=== PATIENT | male | born 1960 | race Asian ===

== ENCOUNTER 2022-09-16 20:46 | Observation (INO) | payer OTHER ==
[2022-09-16 21:02] VITALS: BMI 27.2
[2022-09-17 00:38] LABS: BASO % 0.9 % (0-2.0); EOS % 1.8 % (0-4.5); HEMATOCRIT 38.7 % (35.4-49); HEMOGLOBIN 13.6 GM/dL (11.7-16.9); LYMPH % 12.1 % (8-40); MCH 30.4 pg (25.7-33.7); MCHC 35.2 g/dl (32.0-35.9); MEAN CELL VOLUME 86.3 fl (80-96); MEAN PLT VOLUME 9.3 fl (7.5-11.1); MONO % 5.9 % (3.8-10.2); NEUT % 79.3 % (42.8-82.8); PLATELET COUNT 206 10^3/uL (134-434); RBC 4.49 M/mm3 (4.00-5.60); RDW 14.2 % (11.9-15.9); WHITE BLOOD COUNT 10.3 K/mm3 (4.0-10.0)
[2022-09-17 00:47] LABS: INR 1.09 (0.83-1.09); PROTHROMBIN TIME (PATIENT) 12.6 SEC (9.7-13.0)
[2022-09-17 00:49] LABS: ACTIVATED PTT 30.1 SECONDS (25.2-36.5)
[2022-09-17 01:00] LABS: ALBUMIN 3.6 g/dl (3.4-5.0); BLOOD UREA NITROGEN 14.3 mg/dL (7-18); CALCIUM 8.7 mg/dL (8.5-10.1); MAGNESIUM 2.1 mg/dL (1.8-2.4)
[2022-09-17 01:03] LABS: CREATININE 1.1 mg/dL (0.55-1.3)
[2022-09-17 01:05] LABS: BILIRUBIN,TOTAL 0.5 mg/dL (0.2-1); TOT PROT 6.8 g/dl (6.4-8.2)
[2022-09-17 01:08] LABS: N-TERMINAL BNP 26.6 pg/ml (5-125)
[2022-09-17] MEDS ORDERED: SODIUM CHLORIDE 0.9% 1000 ML INFUS.BAG IV ONE (01:45)
[2022-09-17] MEDS ORDERED: SODIUM CHLORIDE 1,000 ML IV SCH (05:00)
[2022-09-17] MEDS ORDERED: LEVOTHYROXINE NA 88 MCG TABLET (FP) PO SCH (07:00)
[2022-09-17 08:29] LABS: HEMATOCRIT 36.7 % (35.4-49); MCH 30.8 pg (25.7-33.7); MCHC 35.5 g/dl (32.0-35.9); MEAN CELL VOLUME 86.7 fl (80-96); MEAN PLT VOLUME 9.3 fl (7.5-11.1); PLATELET COUNT 188 10^3/uL (134-434); RBC 4.23 M/mm3 (4.00-5.60); RDW 13.7 % (11.9-15.9); WHITE BLOOD COUNT 8.6 K/mm3 (4.0-10.0)
[2022-09-17 08:43] LABS: CALCIUM 8.4 mg/dL (8.5-10.1)
[2022-09-17 08:44] LABS: BLOOD UREA NITROGEN 11.8 mg/dL (7-18); MAGNESIUM 2.1 mg/dL (1.8-2.4)
[2022-09-17 08:47] LABS: PHOSPHOROUS 3.6 mg/dL (2.5-4.9)
[2022-09-17] MEDS ORDERED: LEVOTHYROXINE NA 88 MCG TABLET (FP) ONE (09:39)
[2022-09-17] MEDS ORDERED: ENOXAPARIN NA (PORCINE) 40 MG/0.4 ML DISP.SYRIN SQ ONE (09:39)
[2022-09-17] MEDS ORDERED: CHLORTHALIDONE 25 MG TABLET PO SCH (10:00)
[2022-09-17] MEDS ORDERED: ENOXAPARIN NA (PORCINE) 40 MG/0.4 ML DISP.SYRIN SQ SCH (10:00)
[2022-09-17] MEDS ORDERED: POTASSIUM CHLORIDE ORAL LIQUID 20 MEQ/15 ML PO ONE (10:00)
[2022-09-17 10:16] LABS: PH,URINE 7.5 (5.0-8.0); URINE APPEARANCE CLEAR; URINE BILIRUBIN NEGATIVE (NEGATIVE); URINE COLOR YELLOW; URINE GLUCOSE (UA) NEGATIVE (NEGATIVE); URINE KETONE NEGATIVE (NEGATIVE); URINE LEUK ESTERASE NEGATIVE (NEGATIVE); URINE NITRITE NEGATIVE (NEGATIVE); URINE PROTEIN NEGATIVE (NEGATIVE); URINE UROBILINOGEN 0.2 mg/dL (0.2-1.0)
[2022-09-17 10:50] LABS: COCAINE, UR NEGATIVE (NEGATIVE); OPIATES, URI NEGATIVE (NEGATIVE); URINE BARBITURATES NEGATIVE (NEGATIVE); URINE BENZODIAZEPINES NEGATIVE (NEGATIVE)
[2022-09-17 10:51] LABS: METHADONE, UR NEGATIVE (NEGATIVE); PHENCYCLIDINE,URINE NEGATIVE (NEGATIVE); URINE AMPHETAMINES NEGATIVE (NEGATIVE)
[2022-09-17] MEDS ORDERED: POTASSIUM CHLORIDE ORAL LIQUID 20 MEQ/15 ML ONE (12:35)
[2022-09-17 16:05] VITALS: TEMP 97.6
[2022-09-17 16:28] VITALS: BP 128/85; PULSE 57; RESP 16
[2022-09-17] MEDS ORDERED: MIRTAZAPINE 15 MG TABLET (FP) PO SCH (22:00)
== END 2022-09-17 20:02 | disposition home or self-care (01) ==
LOC: JER 20:46 → JERBED 09-17 00:41 → J4W 09-17 14:11
PROVIDERS: ADMIT Internal Medicine; ATTEND Internal Medicine
PROC: 3E023GC Introduction of Other Therapeutic Substance into Muscle, Percutaneous Approach (ICD-10-PCS; principal; 2022-09-17)
PROC: 3E0337Z Introduction of Electrolytic and Water Balance Substance into Peripheral Vein, Percutaneous Approach (ICD-10-PCS; 2022-09-17)
DX: H53.9 Unspecified visual disturbance (principal); R55 Syncope and collapse; E03.9 Hypothyroidism, unspecified; Z86.16 Personal history of COVID-19; I10 Essential (primary) hypertension; Z29.8 Encounter for other specified prophylactic measures; R63.39 Other feeding difficulties; R61 Generalized hyperhidrosis; R11.0 Nausea; R56.9 Unspecified convulsions; R53.1 Weakness
CPT/HCPCS: 36415; 71046-TC-FY; 80048; 80053; 80061; 80307; 81003; 82550; 82553; 83735; 83880; 84100; 84443; 84484; 85025; 85027; 85610; 85730; 86140; 93005; 93010; 93306-TC; 93880-TC; 99285-25; C9803-CS; G0378; U0003; U0005